=== PATIENT | male | born 1960 | race African-American/Black ===

== ENCOUNTER 2024-02-03 19:40 | Emergency (ER) | payer MEDICAID ==
[~2024-02-03] VITALS: Ht 177.8 cm; Wt 82.0 kg
[2024-02-03 20:12] VITALS: BP 132/81; PULSE 76; RESP 20; TEMP 98.3; O2SAT 100
[2024-02-03] MEDS: ACETAMINOPHEN 325MG TABLET PO ONE (22:27)
[2024-02-03] MEDS ORDERED: HYDR453.3 TP (22:38)
== END 2024-02-03 23:24 | disposition home or self-care (01) ==
LOC: ER 19:40
DX: S50.361A Insect bite (nonvenomous) of right elbow, initial encounter (principal); M25.521 Pain in right elbow; W57.XXXA Bitten or stung by nonvenomous insect and other nonvenomous arthropods, initial encounter; Y93.89 Activity, other specified; Y92.89 Other specified places as the place of occurrence of the external cause; Y99.8 Other external cause status
CPT/HCPCS: 73080; 99283